=== PATIENT | female | born 1980 | race Caucasian/White ===

== ENCOUNTER 2016-12-17 17:51 | Emergency (ER) | payer MEDICAID ==
[~2016-12-17] VITALS: Ht 162.6 cm; Wt 103.5 kg
[~2016-12-17 17:51] MED LIST: AZIT500T2 PO; PREN1TAB49 PO; SODI75SP NASAL; auralgan
[2016-12-17 18:02] VITALS: Ht 162.6 cm; Wt 103.5 kg
[2016-12-17 20:56] LABS: URINE BLOOD (Dip) POC Negative (NEGATIVE)
[2016-12-17 21:21] LABS: ADD SCAN DIFF NO
[2016-12-17 21:23] LABS: BASOPHILS % 0.3 % (0.0-2.0); EOSINOPHILS # 0.3 10^3/ul (0.0-0.5); EOSINOPHILS % 2.4 % (0.0-7.0); HEMATOCRIT 41.8 % (37.0-47.0); HEMOGLOBIN 14.2 g/dl (12.0-16.0); LYMPHOCYTES # 3.2 10^3/ul (0.8-2.9); LYMPHOCYTES % 30.5 % (15.0-51.0); MEAN CORPUSCULAR HEMOGLOBIN 30.5 pg (29.0-33.0); MEAN CORPUSCULAR VOLUME 89.7 fl (82.0-101.0); MEAN PLATELET VOLUME 10.7 fl (7.4-10.4); MONOCYTE # 0.4 10^3/ul (0.3-0.9); MONOCYTES % 3.7 % (0.0-11.0); NEUTROPHIL # 6.7 10^3/ul (1.6-7.5); NEUTROPHILS % 62.8 % (39.0-77.0); PLATELET COUNT 307 10^3/UL (140-415); RED BLOOD COUNT 4.66 10^6/ul (4.20-5.40); WHITE BLOOD COUNT 10.6 10^3/ul (4.8-10.8)
[2016-12-17 22:06] LABS: INR 0.95; PROTIME 12.7 Sec (12.2-14.2)
[2016-12-17 22:07] LABS: PARTIAL THROMBOPLASTIN TIME 28.9 Sec (25.0-35.0)
[2016-12-17 22:12] LABS: ANION GAP 13 (8-16); BLOOD UREA NITROGEN 11 mg/dl (7-20); CALCIUM 9.2 mg/dl (8.4-10.2); CARBON DIOXIDE 22 mmol/L (21-31); CHLORIDE 108 mmol/L (97-110); GLUCOSE 106 mg/dl (70-220); POTASSIUM 3.9 mmol/L (3.5-5.1); SODIUM 139 mmol/L (135-144)
--- NOTE | 2016-12-17 22:13 | RADRPT ---
PROCEDURE: XR Chest. CLINICAL INDICATION: Chest pain. TECHNIQUE: Single frontal chest x-ray. COMPARISON: 06/12/2015 FINDINGS: The cardiomediastinal silhouette is unremarkable. There is no congestive heart failure.. No focal i nfiltrate is seen. There is no pleural effusion. There is no pneumothorax. The osseous structures are unremarkable. IMPRESSION: 1. No active disease. RPTAT: [facility]K .Darian Torres MD, MD Date Time Electronically viewed and signed by .Darian Torres MD, on 12/17/2016 22:13 .K/
[2016-12-17 22:40] LABS: TROPONIN-I < 0.012 ng/ml (0.00-0.12)
[2016-12-17] MEDS ORDERED: ONDANSETRON (ODT) 4 MG TAB ODT STA (22:47)
[2016-12-17] MEDS ORDERED: ONDA4TAB14 PO (22:49)
[2016-12-17] MEDS ORDERED: ACET325T33 PO (22:49)
[2016-12-17] MEDS ORDERED: HYDROCODONE/APAP (5/325) TAB PO ONE (23:00)
[2016-12-17 23:10] VITALS: BP 155/80; PULSE 88; RESP 17; TEMP 98.7
--- NOTE | 2016-12-18 01:12 | ERA ---
ER Documentation Chief Complaint Date/Time DATE: 12/18/16 TIME: 01:05 Chief Complaint BIB FAMILY C/O MID ABDOMINAL PAIN X 6 MONTHS, TODAY HAS NAUSEA/VOMITING HPI This is an otherwise healthy 36-year-old female who is presenting with a chief complaint of epigastric pain and vomiting 1 day. History of hypertension and diabetes mellitus. Patient is also complaining of nausea and diarrhea. Diarrhea is described as watery and brown with a foul odor. Patient has not taken any meds to relieve the symptoms. Patient denies anorexia, weight loss, migrating pain, constipation, postprandial abdominal pain, new or recently changed medications, genital pain or ingestion of new or undercooked food. Patient denies any recent travel. ROS All systems reviewed and are negative except as per history of present illness. Medications Home Meds Active Scripts Acetaminophen* (Tylenol*) 325 Mg Tablet, 1 TAB PO Q6 Y for PAIN AND OR ELEVATED TEMP, #20 TAB Prov:JAMAAL HOROWITZ PA-C 12/17/16 Ondansetron (Ondansetron Odt) 4 Mg Tab.rapdis, 4 MG PO Q6H Y for NAUSEA AND/OR VOMITING, #10 TAB Prov:JAMAAL HOROWITZ PA-C 12/17/16 [auralgan] No Conflict Check, 1-2 DROP .ROUTE Q2H Y for PAIN for 14 Days Prov:MINESH RICHTER NP 06/12/15 Azithromycin* (Zithromax* Tri-Ken) 500 Mg Tablet, 500 MG PO DAILY for 3 Days, TAB Prov:MINESH RICHTER NP 06/12/15 Sodium Chloride/Sod Bicarb (Nasa Mist Saline [place]) 75 Ml [place], 2 SPRAYS NASAL BID, #1 BOTTLE Prov:MINESH RICHTER NP 06/12/15 Reported Medications Vits W-Ca,Fe,Fa(<1MG) () 1 Tab Tablet, 1 TAB PO DAILY 08/09/12 Vits W-Ca,Fe,Fa(<1MG) () 1 Tab Tablet, 1 TAB PO DAILY, 0 Refills 03/30/12 Allergies Allergies: Coded Allergies: ciprofloxacin (Verified Allergy, Unknown, SOB, DIZZYNESS, 06/12/15) ciprofloxacin HCl (Verified Allergy, Unknown, SOB, DIZZYNESS, 06/12/15) PMhx/Soc Medical and Surgical Hx: pt denies Medical Hx, pt denies Surgical Hx History of Surgery: No Anesthesia Reaction: No Hx Neurological Disorder: No Hx Respiratory Disorders: No Hx Cardiac Disorders: No Hx Psychiatric Problems: No Hx Miscellaneous Medical Probl: No Hx Alcohol Use: No Hx Substance Use: No Hx Tobacco Use: No Smoking Status: Never smoker Physical Exam Vitals Vital Signs Date Time Temp Pulse Resp B/P Pulse Ox O2 Delivery O2 Flow Rate FiO2 12/17/16 23:10 98.7 88 17 155/80 10 Room Air 12/17/16 18:02 98.3 91 18 189/91 97 Physical Exam Const: 36-year-old female in no acute distress presenting with daughter Head: Atraumatic Eyes: Normal Conjunctiva ENT: Normal External Ears, Nose and Mouth. Neck: Full range of motion..~ No meningismus. Resp: Clear to auscultation bilaterally Cardio: Regular rate and rhythm, no murmurs Abd: Moderate epigastric tenderness. Soft, non distended. Normal bowel sounds Skin: No petechiae or rashes Back: No midline or flank tenderness Ext: No cyanosis, or edema Neur: Awake and alert Psych: Normal Mood and Affect Result Diagram: 12/17/16204812/17/162048 Results 24 hrs Laboratory Tests Test 12/17/16 20:49 12/17/16 21:00 White Blood Count 10.610^3/ul Red Blood Count 4.6610^6/ul Hemoglobin 14.2g/dl Hematocrit 41.8% Mean Corpuscular Volume 89.7fl Mean Corpuscular Hemoglobin 30.5pg Mean Corpuscular Hemoglobin Concent 34.0g/dl Red Cell Distribution Width 12.0% Platelet Count 09621^3/UL Mean Platelet Volume 10.7fl Neutrophils % 62.8% Lymphocytes % 30.5% Monocytes % 3.7% Eosinophils % 2.4% Basophils % 0.3% Nucleated Red Blood Cells % 0.0/100WBC Neutrophils # 6.710^3/ul Lymphocytes # 3.210^3/ul Monocytes # 0.410^3/ul Eosinophils # 0.310^3/ul Basophils # 0.010^3/ul Nucleated Red Blood Cells # 0.010^3/ul Prothrombin Time 12.7Sec Prothrombin Time Ratio 1.0 INR International Normalized Ratio 0.95 Activated Partial Thromboplast Time 28.9Sec Sodium Level 139mmol/L Potassium Level 3.9mmol/L Chloride Level 108mmol/L Carbon Dioxide Level 22mmol/L Anion Gap 13 Blood Urea Nitrogen 11mg/dl Creatinine 0.70mg/dl Glucose Level 106mg/dl Calcium Level 9.2mg/dl Troponin I < 0.012ng/ml Bedside Urine pH (LAB) 5.5 Bedside Urine Protein (LAB) Negative Bedside Urine Glucose (UA) Negative Bedside Urine Ketones (LAB) Negative Bedside Urine Blood Negative Bedside Urine Nitrite (LAB) Negative Bedside Urine Leukocyte Esterase (L Negative Current Medications Medications (Trade) Dose Ordered Sig/Steve Route PRN Reason Start Time Stop Time Status Last Admin Dose Admin Acetaminophen/ Hydrocodone Bitart ([place] (5/325)) 1 tab ONCE ONCE PO 12/17/16 23:00 12/17/16 23:01 DC 12/17/16 22:52 Ondansetron HCl (Zofran Odt) 4 mg ONCE STAT ODT 12/17/16 22:47 12/17/16 22:48 DC 12/17/16 22:52 Procedures/MDM 36-year-old female was evaluated and worked up for epigastric abdominal discomfort as described in the history and physical examination. Patient was given 4 mg of Zofran IV, 1 L of normal saline over 1 hour, 4 mg of morphine IV. The workup included labs including CBC, lipase, CMP, troponins, PT/PTT. Patient is a labs were unremarkable. EKG was taken and read by me as poor baseline, no ST elevations, no T-wave inversions, normal rhythm, normal axis. X -ray was read by my attending is unremarkable. The current most likely diagnosis from the signs symptoms and physical exam and labs is viral gastroenteritis. The treatment plan will thus include outpatient Zofran and acetaminophen for symptomatic relief. At this time I do not suspect acute ACS, pulmonary embolism, pneumonia, pancreatitis, cholangitis, myocardial/Intestinal ischemia, pneumonia, hernia, or esophageal rupture. I reviewed this case with my attending Dr. Wheeler agrees with the assessment and plan. On repeat exam, the abdomen has improved and now shows no tenderness. The patient is well appearing, and tolerates PO. I have spoke with the patient regarding their condition and future management. They have verbally responded that they understand their status and treatment plan. The patients vitals are stable, and their current condition is appropriate for discharge. The patient will be given discharge instructions with return precautions. Departure Diagnosis: Primary Impression: Gastroenteritis Additional Impression: Abdominal pain Qualified Code: R10.13 - Epigastric pain Condition: Stable Patient Instructions: Abdominal Pain Additional Instructions: Follow up with your PCP within the next 1-3 days for a more thorough evaluation and a possible referral to a specialist. Return the the emergency department immediately if symptoms worsen or change. If you have any questions regarding medications, ask your pharmacist or us before you leave. If any adverse reactions occur while taking your medications, discontinue the treatment and return to the emergency department immediately. Take your medications as directed, and complete the entire course of treatment. JAMAAL HOROWITZ PA-C Dec 18, 2016 01:12
== END 2016-12-17 23:11 | disposition home or self-care (01) ==
LOC: FTE 17:51
DX: K52.9 Noninfective gastroenteritis and colitis, unspecified (principal)
CPT/HCPCS: 36415; 71010; 80048; 81003; 84484; 85025; 85610; 85730; 93005; Z7502; Z7610